=== PATIENT | male | born 1975 | race Caucasian/White ===

== ENCOUNTER 2018-04-25 15:00 | Emergency (ER) | payer OTHER ==
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
[2018-04-25] MEDS ORDERED: Hydromorphone 1 mg/ml Ampule ONE ×2 (15:11→17:00)
[2018-04-25] MEDS ORDERED: Zofran 4 MG/2 ML VIAL ONE (15:12)
[2018-04-25] MEDS ORDERED: Sodium Chloride 0.9% 1000 ML 1,000 ML ONE (15:12)
[2018-04-25] MEDS ORDERED: Hydromorphone 1 mg/ml Ampule IV ONE ×2 (15:15→16:58)
[2018-04-25] MEDS ORDERED: Zofran 4 MG/2 ML VIAL IV ONE (15:15)
[2018-04-25] MEDS ORDERED: Sodium Chloride 0.9% 1000 ML 1,000 ML IV STA (15:15)
[2018-04-25] MEDS ORDERED: VALIUM 10 MG/2 ML SYRINGE IV ONE (15:18)
[2018-04-25] MEDS ORDERED: XYLOCAINE VISCOUS 2% 20 ML CUP MM ONE (15:18)
[2018-04-25] MEDS ORDERED: XYLOCAINE HCl Viscous ONE (15:28)
[2018-04-25 15:32] LABS: Granulocyte Absolute (ANC) 3.74 (1.4-6.9); Hematocrit 39.4 % (42-50); Hemoglobin 13.3 gm/dl (12.5-18.0); Mean Cell Volume 90.8 fl (78-100); Mean Corpuscular Hemoglobin 30.6 pg (26-32); Mean Corpuscular Hgb Concent. 33.8 g/dl (32-36); Mean Platelet Volume 9.5 fl (6-9.5); Platelet Count 284 K/mm3 (150-450); Red Blood Count 4.34 M/mm3 (4.1-5.6); Red Cell Distribution Width 11.8 % (11.5-14.0); White Blood Count 5.4 K/mm3 (4.0-10.5)
[2018-04-25 15:37] LABS: Lactic Acid 2.2 (0.4-2.0)
[2018-04-25 15:50] LABS: ALBUMIN 4.3 g/dL (3.5-5.0); ALKALINE PHOSPHATASE 111 U/L (38-126); ANION GAP 17.7 MEQ/L (5-15); BLOOD UREA NITROGEN 22 mg/dL (9-20); CHLORIDE 103 mmol/L (98-107); Calcium 9.8 mg/dL (8.4-10.2); Carbon Dioxide 28 mmol/L (22-30); Glucose 205 mg/dL (74-106); Potassium 4.1 mmol/L (3.5-5.1); SGOT/AST 37 U/L (17-59); SGPT/ALT 45 U/L (0-50); SODIUM 144 mmol/L (137-145); Total Protein 7.7 g/dL (6.3-8.2)
[2018-04-25 16:06] LABS: Eosinophil 2 % (0.00-3.0); Lymphocytes 24 % (24-44); Monocyte 1 % (0.0-12.0); Neutrophils 73 % (36.-66.); Platelet Estimate NORMAL (NORMAL); Total Cells Counted 100
[2018-04-25 16:09] VITALS: BP 154/96
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
[2018-04-25 17:01] VITALS: PULSE 107; O2SAT 100
== END 2018-04-25 17:50 | disposition home or self-care (01) ==
LOC: ED 15:00
DX: S06.2X0D Diffuse traumatic brain injury without loss of consciousness, subsequent encounter (principal); S30.811D Abrasion of abdominal wall, subsequent encounter; S20.419D Abrasion of unspecified back wall of thorax, subsequent encounter; S50.812D Abrasion of left forearm, subsequent encounter; E11.9 Type 2 diabetes mellitus without complications; Z79.84 Long term (current) use of oral hypoglycemic drugs; V49.9XXD Car occupant (driver) (passenger) injured in unspecified traffic accident, subsequent encounter
CPT/HCPCS: 36000; 36415; 70450; 80053; 83605; 85025; 93041; 96360; 96374; 96375; 96376; 99285; J1170; J2405; J3360; A9270-GY